=== PATIENT | female | born 1995 | race Caucasian/White ===

== ENCOUNTER 2016-06-30 08:41 | Emergency (ER) | payer OTHER ==
[2016-06-30 08:52] VITALS: BP 106/67
== END 2016-06-30 10:34 | disposition home or self-care (01) ==
LOC: ED 08:41
DX: S09.90XA Unspecified injury of head, initial encounter (principal); M25.532 Pain in left wrist; Y04.2XXA Assault by strike against or bumped into by another person, initial encounter; Y93.89 Activity, other specified; Y99.8 Other external cause status; Y92.89 Other specified places as the place of occurrence of the external cause

== ENCOUNTER 2016-09-06 10:24 | Emergency (ER) | payer OTHER ==
[2016-09-06 10:27] VITALS: BP 108/62
== END 2016-09-06 11:58 | disposition home or self-care (01) ==
LOC: ED 10:24
DX: S90.812A Abrasion, left foot, initial encounter (principal); J45.909 Unspecified asthma, uncomplicated; W17.89XA Other fall from one level to another, initial encounter; Y93.89 Activity, other specified; Y99.8 Other external cause status; Y92.89 Other specified places as the place of occurrence of the external cause
CPT/HCPCS: 90715